=== PATIENT | male | born 1945 | race Caucasian/White ===

== ENCOUNTER 2017-02-12 05:35 | Outpatient (CLI) | payer MEDICARE, OTHER ==
[~2017-02-12] VITALS: Ht 175.3 cm; Wt 104.3 kg
== END 2017-02-12 12:17 ==
LOC: PREOP 05:35
PROVIDERS: ATTEND Internal Medicine
DX: Z01.818 Encounter for other preprocedural examination (principal); Z86.010 Personal history of colon polyps

== ENCOUNTER 2017-02-14 07:52 | Day surgery (SDC) | payer MEDICARE, OTHER ==
[~2017-02-14] VITALS: Ht 175.3 cm; Wt 104.3 kg
[2017-02-14] MEDS ORDERED: 1/2 NS IV SOLUTION 1,000 ML IV ONE (08:01)
[2017-02-14] MEDS ORDERED: 1/2 NS IV SOLUTION 1,000 ML IV STA (08:02)
[2017-02-14] MEDS ORDERED: fentaNYL INJECTION 100 MCG/2 ML AMP IVP PRN (08:15)
[2017-02-14] MEDS ORDERED: MIDAZOLAM 2 MG/2 ML (VERSED) VIAL IVP PRN (08:15)
[2017-02-14 08:18] VITALS: BP 159/69
[2017-02-14] MEDS ORDERED: ATOR40TA70 PO (08:24)
[2017-02-14] MEDS ORDERED: FINA5TAB6 PO (08:24)
[2017-02-14] MEDS ORDERED: OMEG1CAP PO (08:24)
[2017-02-14] MEDS ORDERED: LISI-552 PO (08:24)
[2017-02-14] MEDS ORDERED: fentaNYL INJECTION 100 MCG/2 ML AMP ONE (08:35)
[2017-02-14] MEDS ORDERED: MIDAZOLAM 2 MG/2 ML (VERSED) VIAL ONE (08:35)
[2017-02-14] MEDS ORDERED: LIDOCAINE JELLY 2% (XYLOCAINE) 5 ML TUBE ONE (08:35)
--- NOTE | 2017-02-14 09:16 | Pre-Op Note & Conscious Sedat ---
Pre-Operative Progress Note H&P Reviewed The H&P was reviewed, patient examined and no changes noted. Date H&P Reviewed: Feb 14, 2017 Time H&P Reviewed: 08:00 Conscious Sedation Pre-Proced ASA Class: 2 Airway Mallampati Classification: (venetie ira appropriate class) I. II. III, IV Lungs Heart ASA score ASA 1: a normal healthy patient ASA 2: a patient with a mild systemic disease (mid diabetes, controlled hypertension, obesity ASA 3: a patient with a severe systemic disease that limits activity (angina , COPD, prior Myocardial infarction) ASA 4: a patient with an incapacitating disease that is a constant threat to life (CHF, renal failure) ASA 5: a moribund patient not expected to survive 24 hrs. (ruptured aneurysm) ASA 6: a declared brain patient whose organs are being harvested. For emergent operations, add the letter E after the classification Grade 2 Sedation Plan: Analgesia, Amnesia, Plan communicated to team members, Discussed options with patient/fam, Discussed risks with patient/fam Note The patient is an appropriate candidate to undergo the planned procedure, sedation, and anesthesia. The patient immediately re-assessed prior to indication. ROXY ROTHMAN MD Feb 14, 2017 09:16
[2017-02-14] MEDS ORDERED: LIDOCAINE JELLY 2% (XYLOCAINE) 5 ML TUBE TOP ONE (09:45)
[2017-02-14 10:05] VITALS: BP 138/69
[2017-02-14 10:35] VITALS: BP 159/94
[2017-02-14 10:50] VITALS: BP 159/94
--- NOTE | 2017-02-14 11:23 | HISTORY AND PHYSICAL ---
COLONOSCOPY HISTORY AND PHYSICAL: Mr. Villalta is a 71-year-old a white male seen as a new patient in the office on the 03 of February. He had a history of colon polyps. Last scope was in 2008 so he is in need of follow-up. He reports that he has been is in his usual state of reasonable health. He does have some chronic low back pain with a history of lumbar fusion in 2006 as well as repeat procedure at a separate location 2014. He had a spacer insertion of that time and symptoms have improved to the point that he is able to get around well with no radicular pain but with some intermittent focal low back pain. He has had no bowel or bladder control problems. He also denies bright red blood per rectum, melena or bowel habit change. PAST MEDICAL HISTORY: Significant for: 1. Hypertension. 2. Hyperlipidemia. 3. He has no known history of vascular disease. MEDICATIONS ON ADMISSION: 1. Lovaza 2. atorvastatin 3. lisinopril 4. Finasteride, he has history of elevated PSA with normalization on finasteride with no known history of prostate cancer. I believe that he did have negative biopsies x1. SOCIAL HISTORY: He is retired. Keeps himself busy with outdoor projects. He is a lifelong nonsmoker with no alcohol intake history. FAMILY HISTORY: He is not aware of any family history for colon cancer with a history of longevity. His mother is still living at the age of 92 and in decent health especially considering her age. PHYSICAL EXAMINATION: Reveals a well kempt overweight white male in no acute distress. VITAL SIGNS: Blood pressure initially 156/76, at the end of the interview down to 140/70. HEENT EXAMINATION: Unremarkable. Sclera nonicteric. HEENT: Oral cavity reveals a Mallampati class II oropharyngeal configuration. No exudate or erythema is noted. NECK: Revealed no JVD, adenopathy or bruits. CHEST: Clear. CV: Revealed a regular rate and rhythm without murmur, S3 or S4. ABDOMEN: Soft, supple without masses, organomegaly or tenderness. EXTREMITIES: Reveal no cyanosis, clubbing, or edema. RECTAL EXAM: Deferred to the time of colonoscopy set up for 02/14. ASSESSMENT/PLAN: 1. Hypertension under reasonable control. 2. Acquired spinal stenosis, which has been relatively stable as of late. 3. Hyperlipidemia has been under good control. We did have the patient sign for release of information from his [place] physician. 4. Lastly, he does have OA of the knees status post right total knee replacement in 2016. He milder changes in the left knee for which he is not ready to consider surgery for yet. He was scheduled to return in 6 months. We will repeat a lipid panel and a BMP at that time. Prep instructions with split dose Colyte were given and questions were answered in regards to colonoscopy. Job ID: [id number] Dictated Date: 02/13/2017 11:08:07 Floor Attendant Date: 02/14/2017 11:12:07/latosha
--- NOTE | 2017-02-16 00:11 | PROCEDURE REPORT ---
PROCEDURE PHYSICIAN: ROXY ROTHMAN DATE OF PROCEDURE: 02/14/2017 COLONOSCOPY SUMMARY: PRIMARY CARE PROVIDER: Dr. Rothman PROCEDURE: Diagnostic colonoscopy due to a past history of colon polyps. The patient's was placed in left lateral decubitus position. Prior to undergoing colonoscopy, digital rectal evaluation was performed. Anal sphincter tone was normal and the perianal reflex was intact. The prostate is moderately enlarged, anodular and nontender to digital inspection. No other abnormalities were noted to digital inspection of the anal canal or distal rectal vault. The colonoscope was then inserted into the rectum and under direct visualization, advanced to the cecum. The cecum was identified by identification of the ileocecal valve and the cecal strap. Photographic documentation was obtained. Careful inspection was made as the endoscope was withdrawn. The patient tolerated the procedure well. FINDINGS: There was no evidence for internal or external hemorrhoids and the rectum was unremarkable. Several medium-size sigmoid diverticulum were present, without evidence for diverticulitis. No other sigmoid colonic abnormalities were appreciated. Present in the proximal descending colon was a diminutive 1 mm sessile polyp which was biopsied and ablated with no subsequent blood loss. The transverse colon was unremarkable. The mid descending colon revealed 2 adjacent diminutive polyps both were biopsied and ablated, with no subsequent blood loss. The remainder of the ascending colon and cecum were unremarkable. ASSESSMENT: 3 diminutive polyps were removed via hot forceps today without significant bleeding, locations as noted above. We will need to await histopathology report before recommending future surveillance colonoscopy. The patient did have mild diverticular disease confined to the sigmoid colon and evidence for moderate BPH to digital inspection. Job ID: [id number] Dictated Date: 02/14/2017 12:00:57 Pipe Fitter Supervisor Maintenance Date: 02/16/2017 00:06:28 / latosha
== END 2017-02-14 10:50 | disposition home or self-care (01) ==
LOC: ENDO 07:52
PROVIDERS: ATTEND Internal Medicine
DX: K63.5 Polyp of colon; Z12.11 Encounter for screening for malignant neoplasm of colon; K57.30 Diverticulosis of large intestine without perforation or abscess without bleeding; Z86.010 Personal history of colon polyps; D12.2 Benign neoplasm of ascending colon
CPT/HCPCS: 88305

== ENCOUNTER 2021-03-29 11:12 | Outpatient (RCR) | payer MEDICARE, OTHER ==
[~2021-03-29 11:12] MED LIST: ATOR40TA70 PO; FINA5TAB6 PO; LISI20TA26 PO; NF-LOVAZAC PO
== END 2021-03-29 14:19 | disposition home or self-care (01) ==
PROVIDERS: ATTEND Physician Assistant Medical
DX: M75.51 Bursitis of right shoulder (principal); Z98.1 Arthrodesis status; Z96.651 Presence of right artificial knee joint
CPT/HCPCS: 97161; G0283

== ENCOUNTER 2021-09-20 09:08 | Outpatient (RCR) | payer MEDICARE, OTHER ==
[~2021-09-20] VITALS: Ht 177.8 cm; Wt 97.7 kg
== END 2021-09-20 14:38 | disposition home or self-care (01) ==
LOC: PREOP 09:08 → EDSTATUS 09-21 09:15
PROVIDERS: ATTEND Internal Medicine
DX: Z01.818 Encounter for other preprocedural examination (principal)

== ENCOUNTER 2021-09-28 07:38 | Day surgery (SDC) | payer MEDICARE, OTHER ==
--- NOTE | 2021-09-20 16:35 | HISTORY AND PHYSICAL ---
DATE OF SERVICE: COLONOSCOPY SUMMARY DATE OF ADMISSION: 09/28/2021 HISTORY: Colonoscopy is being set up for surveillance purposes due to past history of colon polyps. He last underwent colonoscopy 5 years ago, at which time 3 polyps were removed, most significant being a tubular adenoma in the mid ascending colon, had hyperplastic polyp removed from the ascending colon. The patient denies bowel habit changes noted. No bright red blood per rectum or melena. Does report he gets up 2 to 3 times at night and having some intermittent urgency during the day without incontinence. It takes him longer during the night to evacuate his bladder. He does feel that he is able to do so completely. He has no history of urinary tract infection. He was seen for followup of type 2 diabetes. He also reports that his has noticed when he first falls asleep for at least 30 minutes will have some lower extremity twitching and description compatible with myoclonus. After that, it settles down. He reports restful sleep. He does have a history of obstructive sleep apnea and is compliant with CPAP and is not aware of any of this. He does not keep his up. She has just noticed it when he is asleep before she is. Energy level has been good during the day. He has had no orthopnea, PND, pedal edema or chest pain. Denies dyspnea on exertion. PHYSICAL EXAMINATION: GENERAL: Reveals a white male, appears to be in no acute distress. VITAL SIGNS: Weight was down 6 pounds to 220.4, blood pressure 118/76. CHEST: Clear. CARDIOVASCULAR: Revealed a regular rate and rhythm without significant murmur, S3 or S4. ABDOMEN: Soft, supple without mass, organomegaly or tenderness. EXTREMITIES: Reveal no cyanosis, clubbing or edema. LABORATORY DATA: Blood tests were reviewed with the patient. A1c is 6.2% with a fasting sugar of 111. ASSESSMENT AND PLAN: 1. Type 2 diabetes mellitus under good control on diet. The patient commended for weight loss accomplished via portion control. 2. Hypertension, under good control. 3. The patient is set up for colonoscopy for followup of history of colon polyps. Prep instructions were given and questions were answered. 4. Nocturnal myoclonus asymptomatic, did not recommend treatment at this time. 5. Prostatism. We will discuss further. The patient is on finasteride, but we will be performing digital rectal evaluation at the time of his colonoscopy next Friday and we will address whether or not adding alpha blockers warranted. Job ID: [id number] DocumentID: [id number] Dictated Date: 09/17/2021 18:32:15 Sports Analyst Date: 09/17/2021 19:10:16 Dictated By: ROXY ROTHMAN MD
[~2021-09-28] VITALS: Ht 177.8 cm; Wt 97.7 kg
[2021-09-28] MEDS ORDERED: LACTATED RINGERS 1,000 ML IV STA (07:48)
[2021-09-28 07:58] VITALS: BP 149/73
[2021-09-28] MEDS ORDERED: LIDOCAINE JELLY 2% 6 ML SYRINGE MM PRN (08:00)
--- NOTE | 2021-09-28 08:31 | Pre-Op Note & Conscious Sedat ---
Pre-Operative Progress Note H&P Reviewed The H&P was reviewed, patient examined and no changes noted. Date H&P Reviewed: Sep 28, 2021 Time H&P Reviewed: 08:00 Conscious Sedation Pre-Proced ASA Score 2 For ASA 3 and 4: Consider anesthesia and medical clearance. Also, for patients with a history of failed moderate sedation consider anesthesia. Airway Lungs Heart ASA score ASA 1: a normal healthy patient ASA 2: a patient with a mild systemic disease (mid diabetes, controlled hypertension, obesity ASA 3: a patient with a severe systemic disease that limits activity (angina, COPD, prior Myocardial infarction) ASA 4: a patient with an incapacitating disease that is a constant threat to life (CHF, renal failure) ASA 5: a moribund patient not expected to survive 24 hrs. (ruptured aneurysm) ASA 6: a declared brain- patient whose organs are being harvested. For emergent operations, add the letter E after the classification Mallampati Classification Grade 2 Sedation Plan Analgesia, Amnesia, Plan communicated to team members, Discussed options with patient/fam, Discussed risks with patient/fam The patient is an appropriate candidate to undergo the planned procedure, sedation, and anesthesia. The patient immediately re-assessed prior to indication. ROXY ROTHMAN MD Sep 28, 2021 08:31
[2021-09-28] MEDS ORDERED: PROPOFOL INJECTION 50 ML IV ONE (08:32)
[2021-09-28 09:05] VITALS: BP 118/58
[2021-09-28 09:10] VITALS: BP 114/57
--- NOTE | 2021-09-28 09:28 | Anesthesia-General Post-Op ---
MAC Patient Condition Mental Status/LOC: Same as Preop Cardiovascular: Satisfactory Nausea/Vomiting: Absent Respiratory: Satisfactory Pain: Controlled Complications: Absent Post Op Complications Complications None Follow Up Care/Instructions Patient Instructions None needed. Anesthesiology Discharge Order Discharge Order Patient is doing well, no complaints, stable vital signs, no apparent adverse anesthesia problems. No complications reported per nursing. BRENNON ARRIAGA CRNA Sep 28, 2021 09:28
[2021-09-28 09:33] VITALS: BP 115/56
--- NOTE | 2021-09-28 09:51 | OPERATIVE REPORT ---
DATE OF SERVICE: COLONOSCOPY SUMMARY INDICATION FOR THE PROCEDURE: Surveillance colonoscopy, history of colon polyps. DESCRIPTION OF PROCEDURE: The patient was placed in the left lateral decubitus position. Prior to undergoing colonoscopy, a digital rectal evaluation was performed. Anal sphincter tone was normal and the perianal reflexes were intact. Prostate is moderate to severely enlarged and bulbous, but no nodularity was noted with uniform consistency on digital evaluation. No other digital abnormalities were noted on inspection of anal canal or distal rectal vault. The colonoscope was then inserted into the rectum and under direct visualization advanced to the cecum. The cecum was identified by identification of the ileocecal valve and cecal strap. Photographic time was obtained. Quality of prep was fair. FINDINGS: There was no evidence for external hemorrhoids. Several grade I internal hemorrhoid complexes were noted. The rectum was unremarkable. Noted in the proximal sigmoid colon and splenic flexure and distal transverse colon were sessile polyps, 4 to 6 mm in size. All were ablated via hot forceps with tissue submitted for histopathology. Mild diverticular disease confined to the sigmoid colon was present without evidence for diverticulitis. The hepatic flexure, ascending colon, and cecum were unremarkable. ASSESSMENT: 1. Three sessile polyps ranging from 4 to 6 mm in size were removed via hot forceps from the proximal sigmoid colon, splenic flexure and distal transverse colon. We will await histopathology report before recommending future surveillance colonoscopy; however, considering age, if they are all low-risk polyps, may not be recommending future surveillance colonoscopy. 2. Moderate to severe BPH is noted, which has been symptomatic for the patient. We did discuss treatment options in addition to his finasteride, we discussed initiating tamsulosin 0.4 mg with the evening meal. Discussed side effects including dizziness/orthostatic hypotension, retrograde ejaculation, and rhinorrhea. After discussion and answering the patient's and his 's questions They opted to hold off on a medication trial at this time. They will keep his regular followup appointment with me in several months to monitor progress. Job ID: [id number] DocumentID: [id number] Dictated Date: 09/28/2021 09:15:46 Home Improvement Installer Date: 09/28/2021 09:50:07 Dictated By: ROXY ROTHMAN MD [facility]ina
== END 2021-09-28 10:10 | disposition home or self-care (01) ==
LOC: ENDO 07:38
PROVIDERS: ATTEND Internal Medicine
DX: Z12.11 Encounter for screening for malignant neoplasm of colon (principal); D12.3 Benign neoplasm of transverse colon; D12.5 Benign neoplasm of sigmoid colon; D12.8 Benign neoplasm of rectum; K57.30 Diverticulosis of large intestine without perforation or abscess without bleeding; K64.0 First degree hemorrhoids; N40.1 Benign prostatic hyperplasia with lower urinary tract symptoms; R39.15 Urgency of urination; E11.9 Type 2 diabetes mellitus without complications; G47.33 Obstructive sleep apnea (adult) (pediatric); I10 Essential (primary) hypertension; G25.3 Myoclonus; G47.69 Other sleep related movement disorders; Z79.899 Other long term (current) drug therapy